=== PATIENT | female | born 1965 | race African-American/Black ===

== ENCOUNTER 2016-07-14 19:46 | Emergency (ER) | payer BC ==
[~2016-07-14] VITALS: Ht 157.5 cm; Wt 63.0 kg
[2016-07-14 19:48] VITALS: BP 118/58; PULSE 74; RESP 20; TEMP 98; O2SAT 100
[2016-07-14] MEDS ORDERED: diphenhydrAMINE HCL 2%/ZINC ACETATE 0.1% CREAM 30 APPLIC/30 GM TUBE TOPICAL ONE (20:15)
[2016-07-14] MEDS ORDERED: predniSONE 20 MG TAB PO ONE (20:15)
[2016-07-14 20:16] LABS: BLOOD, URINE NEG (NEG); GLUCOSE,URINE NEG (NEG); KETONE, URINE NEG (NEG); NITRITE,URINE NEG (NEG); PH, URINE 5.5 (5.0-8.5)
[2016-07-14 20:40] LABS: BACTERIA, URINE FEW /hpf; RBC, URINE 0-3 /hpf (0-3); SQUAMOUS EPITHELIAL CELL URINE 0-5 /hpf (0-5); URINE COLOR YELLOW (YELLW/STRAW)
[2016-07-14 20:41] LABS: MUCUS URINE OCC /lpf (OCC)
[2016-07-14 20:42] LABS: COMMENT (UR) CULT NOT INDICATED; CULTURE IF INDICATED CULT NOT INDICATED; WBC, URINE 0-2 /hpf (0-5)
--- NOTE | 2016-07-14 21:08 | PD ---
HPI Chief Complaint: Allergic/Adverse Reaction Time Seen by Provider: 20:00 Travel History International Travel<30 days: No Contact w/Intl Traveler<30days: No Traveled to known affect area: No History of Present Illness HPI 50-year-old Afro-[place] female presents the emergency Department with a rash to the anterior neck and right arm for the past 3 days. Patient reports he was she has been treated with Bactrim DS for urinary tract infection 5 days prior to this visit. Patient continue to take the antibiotic until today. Patient is here to have this rash checked and treated. Patient denies fever, chills, difficulty swallowing, or wheezing. She denies abdominal pain and urinary symptoms currently. She has no history of allergies to medication previously. Patient has not tried treating the rash with anything. PFSH Past Medical History ?: Not Social History Alcohol Use: No Tobacco Use: No Substance Use: No Allergies-Medications (Allergen,Severity, Reaction): Coded Allergies: Sulfamethoxazole (Verified Allergy, Unknown, 07/14/16) Reported Meds & Prescriptions Reported Meds & Active Scripts Active No Active Prescriptions or Reported Medications Review of Systems Except as stated in HPI: all other systems reviewed are Neg General / Constitutional: No: Fever Eyes: No: Visual changes HENT: No: Headaches Cardiovascular: No: Chest Pain or Discomfort Respiratory: No: Shortness of Breath Gastrointestinal: No: Abdominal Pain Genitourinary: No: Dysuria Musculoskeletal: No: Pain Skin: Positive Rash, Positive Itching (see history present illness.) Neurologic: No: Weakness Psychiatric: No: Depression Endocrine: No: Polydipsia Hematologic/Lymphatic: No: Easy Bruising Physical Exam Narrative GENERAL: Patient appears in mild distress. SKIN: Warm and dry. Normal color. Normal turgor. Patient has raised excoriated rash to the anterior neck with mild erythema, as well as this area of her upper right inner arm consistent with medication reaction. HEAD: Atraumatic. Normocephalic. EYES: Pupils equal and round. No scleral icterus. No injection or drainage. ENT: No nasal bleeding or discharge. Mucous membranes pink and moist. Pharynx is normal. No swelling. No erythema. Uvula is midline. NECK: Trachea midline. No JVD. Neck is supple nontender. CARDIOVASCULAR: Regular rate and rhythm. RESPIRATORY: No accessory muscle use. Clear to auscultation. Breath sounds equal bilaterally. GASTROINTESTINAL: Abdomen soft, non-tender, nondistended. Hepatic and splenic margins not palpable. No CVA tenderness. MUSCULOSKELETAL: Extremities without clubbing, cyanosis, or edema. No obvious deformities. NEUROLOGICAL: Awake and alert. No obvious cranial nerve deficits. Motor grossly within normal limits. Five out of 5 muscle strength in the arms and legs. Normal speech. PSYCHIATRIC: Appropriate mood and affect; insight and judgment normal. Data Data Last Documented VS Vital Signs Date Time Temp Pulse Resp B/P Pulse Ox O2 Delivery O2 Flow Rate FiO2 07/14/16 19:48 98.0 74 20 118/58 100 Orders Urinalysis - C+S If Indicated (07/14/16 20:05) Prednisone (Deltasone) (07/14/16 20:15) Diphenhydramine 2%/Zinc Cream (Benadryl (07/14/16 20:15) Labs Laboratory Tests Test 07/14/16 20:05 Urine Color YELLOW Urine Turbidity CLEAR Urine pH 5.5 Urine Specific Nelson 1.015 Urine Protein NEG mg/dL Urine Glucose (UA) NEG mg/dL Urine Ketones NEG mg/dL Urine Occult Blood NEG Urine Nitrite NEG Urine Bilirubin NEG Urine Leukocyte Esterase NEG Urine RBC 0-3 /hpf Urine WBC 0-2 /hpf Urine Squamous Epithelial 0-5 /hpf Cells Urine Bacteria FEW /hpf Urine Mucus OCC /lpf Microscopic Urinalysis Comment CULT NOT INDICATED MDM Medical Decision Making Medical Screen Exam Complete: Yes Emergency Medical Condition: Yes Differential Diagnosis Medication reaction. Rash. Allergy reaction Narrative Course Patient is medically stable at time of exam. Urine is checked and found to have continued bacteria. Patient is placed on Keflex 500 mg 3 times a day for 5 days. Patient is given prednisone 40 mg by mouth. Patient will continue prednisone 20 mg twice a day 5 days. Patient use topical Benadryl ointment to the areas as well as oral Benadryl as needed for itch. Patient follow with her primary care physician as already scheduled to ensure resolution of both issues. Patient can return the emergency department if symptoms warrant. Diagnosis Primary Impression: Medication reaction Qualified Code: T88.7XXA - Medication reaction, initial encounter Additional Impression: Urinary tract infection Qualified Code: N30.00 - Acute cystitis without hematuria Referrals: Primary Care Physician Patient Instructions: Antibiotic Medication Allergy (ED), General Allergic Reaction (ED), General Instructions Additional Instructions: Urine is checked and found to have continued bacteria. Patient is placed on Keflex 500 mg 3 times a day for 5 days. Patient is given prednisone 40 mg by mouth. Patient will continue prednisone 20 mg twice a day 5 days. Patient use topical Benadryl ointment to the areas as well as oral Benadryl as needed for itch. Patient follow with her primary care physician as already scheduled to ensure resolution of both issues. Patient can return the emergency department if symptoms warrant. Med/Other Pt SpecificInfo: Prescription(s) given Scripts No Active Prescriptions or Reported Meds Disposition: 01 DISCHARGE HOME Condition: Stable Shai Ernst Jul 14, 2016 21:08
[2016-07-14] MEDS ORDERED: PRED20 PO (21:09)
[2016-07-14] MEDS ORDERED: CEPH-460 PO (21:09)
== END 2016-07-14 21:12 | disposition home or self-care (01) ==
LOC: PHEFT 19:46
DX: L27.1 Localized skin eruption due to drugs and medicaments taken internally (principal); T37.0X5A Adverse effect of sulfonamides, initial encounter; N30.00 Acute cystitis without hematuria
CPT/HCPCS: 81001; 99283; J7512

== ENCOUNTER 2016-08-20 20:27 | Emergency (ER) | payer BC ==
[~2016-08-20] VITALS: Ht 170.2 cm; Wt 65.0 kg
[~2016-08-20 20:27] MED LIST: CEPH-460 PO; PRED20 PO
[2016-08-20 20:37] VITALS: BP 124/64; PULSE 68; RESP 16; TEMP 98.9; O2SAT 100
[2016-08-20] MEDS ORDERED: PROPARACAINE HCL 0.5% OPHT SOLN 15 ML BTL LEFT EYE ONE (21:00)
[2016-08-20] MEDS ORDERED: CIPR0.3S2 LEFT EYE (21:11)
[2016-08-20] MEDS ORDERED: HYDR-3533 PO (21:11)
--- NOTE | 2016-08-20 21:11 | PD ---
HPI Chief Complaint: Eye Problems/Injury Time Seen by Provider: 20:54 Travel History International Travel<30 days: No Contact w/Intl Traveler<30days: No Traveled to known affect area: No History of Present Illness HPI This 50-year-old female is complaining of pain in her left eye. She wears extended wear contacts. This afternoon she felt like there was some irritation that she took the contact out to rinse it off. Unable to put it back in because it was painful. She has not noted a change in vision. PFSH Past Medical History Influenza Vaccination: Yes ?: Not Menopausal: Yes Social History Alcohol Use: No Tobacco Use: No Substance Use: No Allergies-Medications (Allergen,Severity, Reaction): Coded Allergies: Sulfamethoxazole (Verified Allergy, Unknown, 08/20/16) Reported Meds & Prescriptions Reported Meds & Active Scripts Active Review of Systems General / Constitutional: No: Fever, Chills Eyes: Positive: Foreign Body Sensation, Pain, Tearing, No: Diploplia HENT: No: Headaches Cardiovascular: No: Chest Pain or Discomfort Respiratory: No: Cough Genitourinary: No: Urgency, Frequency Musculoskeletal: No: Myalgias Skin: No Rash Physical Exam Narrative GENERAL: Well-developed female SKIN: Focused skin assessment warm/dry. HEAD: Atraumatic. Normocephalic. EYES: Pupils equal and round. There is conjunctival injection of the left eye. Pupils round and reactive. Anterior chamber is clear. With fluorescein staining defect visible on the inferior portion of the cornea ENT: No nasal bleeding or discharge. Mucous membranes pink and moist. NECK: Trachea midline. No JVD. MUSCULOSKELETAL: No obvious deformities. No clubbing. No cyanosis. No edema. NEUROLOGICAL: Awake and alert. No obvious cranial nerve deficits. Motor grossly within normal limits. Normal speech. PSYCHIATRIC: Appropriate mood and affect; insight and judgment normal. Data Data Last Documented VS Vital Signs Date Time Temp Pulse Resp B/P Pulse Ox O2 Delivery O2 Flow Rate FiO2 08/20/16 20:37 98.9 68 16 124/64 100 Orders Proparacaine 0.5% Opth Soln (Alcaine 0.5 (08/20/16 21:00) MDM Medical Decision Making Medical Screen Exam Complete: Yes Emergency Medical Condition: Yes Medical Record Reviewed: Yes Differential Diagnosis Differential includes conjunctivitis, corneal abrasion, corneal ulcer Narrative Course Exam is consistent with a corneal abrasion. Diagnosis Primary Impression: Corneal abrasion due to contact lens Qualified Code: H18.822 - Corneal abrasion due to contact lens, left Scripts Hydrocodone-Acetaminophen (Lortab)5-325 Mg Tab1-2 Tab PO Q6H PRN (PAIN) #20 TAB Ref 0 Prov:Felix Marie MD 08/20/16 Ciprofloxacin Opth Drops 0.3% Soln2 Drop LEFT EYE Q4H #1 BOTTLE Ref 0 while awake x 5 days. Prov:Felix Marie MD 08/20/16 Disposition: 01 DISCHARGE HOME Condition: Stable Felix Marie MD August 20, 2016 21:11
== END 2016-08-20 21:22 | disposition home or self-care (01) ==
LOC: PHEFT 20:27
DX: H18.822 Corneal disorder due to contact lens, left eye (principal)
CPT/HCPCS: 99283